=== PATIENT | male | born 1945 | race Caucasian/White ===

== ENCOUNTER → 2019-12-06 09:09 | Outpatient (BNVA) | payer MEDICARE, BC, SELFPAY | PROVIDERS: PCP Family Medicine; Visit Provider Family Medicine | DX: E11.9 Type 2 diabetes mellitus without complications (principal); Z79.4 Long term (current) use of insulin | CPT/HCPCS: 83036; 85025 ==

== ENCOUNTER → 2019-12-09 08:40 | Outpatient (BNVA) | payer MEDICARE, BC, SELFPAY | PROVIDERS: PCP Family Medicine; Visit Provider Family Medicine | DX: E11.9 Type 2 diabetes mellitus without complications (principal); Z79.4 Long term (current) use of insulin; Z12.5 Encounter for screening for malignant neoplasm of prostate | CPT/HCPCS: 80053; 80061; G0103 ==

== ENCOUNTER → 2020-02-04 10:16 | Outpatient (BNVA) | payer MEDICARE, BC, SELFPAY | PROVIDERS: Family Provider Family Medicine; PCP Family Medicine; Visit Provider Internal Medicine Rheumatology | DX: M45.6 Ankylosing spondylitis lumbar region (principal) | CPT/HCPCS: 82565; 84460; 85025; 85651; 86140 ==

== ENCOUNTER → 2020-04-01 11:10 | Outpatient (BNVA) | payer MEDICARE, BC, SELFPAY | PROVIDERS: Family Provider Family Medicine; PCP Family Medicine; Visit Provider Family Medicine | DX: M45.6 Ankylosing spondylitis lumbar region (principal); E11.9 Type 2 diabetes mellitus without complications; Z79.4 Long term (current) use of insulin; E78.5 Hyperlipidemia, unspecified; I10 Essential (primary) hypertension; I25.10 Atherosclerotic heart disease of native coronary artery without angina pectoris | CPT/HCPCS: 80053; 80061; 83036; 85025 ==

== ENCOUNTER → 2020-04-24 12:01 | Outpatient (BNVA) | payer MEDICARE, BC, SELFPAY | PROVIDERS: Family Provider Family Medicine; PCP Family Medicine; Visit Provider Internal Medicine Rheumatology | DX: Z79.899 Other long term (current) drug therapy (principal) | CPT/HCPCS: 80076; 82565; 85025; 85651; 86140 ==

== ENCOUNTER → 2020-05-05 14:07 | Outpatient (BNVA) | payer MEDICARE, BC, SELFPAY | PROVIDERS: Family Provider Family Medicine; PCP Family Medicine; Visit Provider Internal Medicine Rheumatology | DX: M45.6 Ankylosing spondylitis lumbar region (principal); N18.9 Chronic kidney disease, unspecified; Z79.899 Other long term (current) drug therapy; M43.06 Spondylolysis, lumbar region | CPT/HCPCS: 99214 ==

== ENCOUNTER → 2020-07-07 08:20 | Outpatient (BNVA) | payer MEDICARE, BC, SELFPAY | PROVIDERS: Family Provider Family Medicine; PCP Family Medicine; Visit Provider Family Medicine | DX: E78.5 Hyperlipidemia, unspecified (principal); E11.9 Type 2 diabetes mellitus without complications; Z79.4 Long term (current) use of insulin; I10 Essential (primary) hypertension; Z68.34 Body mass index [BMI] 34.0-34.9, adult | CPT/HCPCS: 80053; 80061; 83036 ==

== ENCOUNTER → 2020-08-27 14:41 | Outpatient (BNVA) | payer MEDICARE, BC, SELFPAY | PROVIDERS: Family Provider Family Medicine; PCP Family Medicine; Visit Provider Internal Medicine Rheumatology | DX: Z79.899 Other long term (current) drug therapy (principal) | CPT/HCPCS: 80076; 82565; 85025; 85651; 86140 ==

== ENCOUNTER → 2020-10-05 10:17 | Outpatient (BNVA) | payer MEDICARE, BC, SELFPAY | PROVIDERS: Family Provider Family Medicine; PCP Family Medicine; Visit Provider Family Medicine | DX: I10 Essential (primary) hypertension (principal); E78.5 Hyperlipidemia, unspecified; N40.0 Benign prostatic hyperplasia without lower urinary tract symptoms; Z79.4 Long term (current) use of insulin | CPT/HCPCS: 80053; 80061; 83036; 85025 ==

== ENCOUNTER → 2020-10-19 14:32 | Outpatient (BNVA) | payer MEDICARE, BC, SELFPAY | PROVIDERS: Family Provider Family Medicine; PCP Family Medicine; Visit Provider Internal Medicine Rheumatology | DX: M45.6 Ankylosing spondylitis lumbar region (principal); M54.89 Other dorsalgia; N18.9 Chronic kidney disease, unspecified; M47.816 Spondylosis without myelopathy or radiculopathy, lumbar region; Z79.899 Other long term (current) drug therapy | CPT/HCPCS: 99214 ==

== ENCOUNTER → 2021-01-22 08:31 | Outpatient (BNVA) | payer MEDICARE, BC, SELFPAY | PROVIDERS: Family Provider Family Medicine; PCP Family Medicine; Visit Provider Family Medicine | DX: I10 Essential (primary) hypertension (principal); Z79.899 Other long term (current) drug therapy; E11.9 Type 2 diabetes mellitus without complications; Z79.4 Long term (current) use of insulin; E78.5 Hyperlipidemia, unspecified; Z12.5 Encounter for screening for malignant neoplasm of prostate | CPT/HCPCS: 80053; 80061; 80076; 82565; 83036; 85025; 86140; G0103 ==

== ENCOUNTER → 2021-03-01 12:37 | Outpatient (BNVA) | payer MEDICARE, BC, SELFPAY | PROVIDERS: Family Provider Family Medicine; PCP Family Medicine; Visit Provider Internal Medicine Rheumatology | DX: M45.6 Ankylosing spondylitis lumbar region (principal); Z79.899 Other long term (current) drug therapy; M16.0 Bilateral primary osteoarthritis of hip; E11.22 Type 2 diabetes mellitus with diabetic chronic kidney disease; N18.9 Chronic kidney disease, unspecified; Z79.4 Long term (current) use of insulin | CPT/HCPCS: 99214 ==

== ENCOUNTER → 2021-03-31 08:33 | Outpatient (BNVA) | payer MEDICARE, BC, SELFPAY | PROVIDERS: Family Provider Family Medicine; PCP Family Medicine; Visit Provider Internal Medicine Rheumatology | DX: M45.6 Ankylosing spondylitis lumbar region (principal); M54.89 Other dorsalgia; Z79.899 Other long term (current) drug therapy | CPT/HCPCS: 36415; 80076; 82565; 85025; 86140 ==

== ENCOUNTER → 2021-05-11 11:44 | Outpatient (BNVA) | payer MEDICARE, BC, SELFPAY | PROVIDERS: Family Provider Family Medicine; PCP Family Medicine; Visit Provider Family Medicine | DX: E11.9 Type 2 diabetes mellitus without complications (principal); E78.5 Hyperlipidemia, unspecified; I10 Essential (primary) hypertension; Z79.4 Long term (current) use of insulin | CPT/HCPCS: 80053; 80061; 83036; 85025 ==

== ENCOUNTER → 2021-08-30 10:43 | Outpatient (BNVA) | payer MEDICARE, BC, SELFPAY | PROVIDERS: Family Provider Family Medicine; PCP Family Medicine; Visit Provider Internal Medicine Rheumatology | DX: M45.6 Ankylosing spondylitis lumbar region (principal); Z79.899 Other long term (current) drug therapy; E11.9 Type 2 diabetes mellitus without complications; Z79.4 Long term (current) use of insulin; E78.5 Hyperlipidemia, unspecified | CPT/HCPCS: 80048; 80061; 80076; 82565; 83036; 85025; 86140 ==

== ENCOUNTER → 2021-11-16 11:25 | Outpatient (BNVA) | payer MEDICARE, BC, SELFPAY | PROVIDERS: Family Provider Family Medicine; PCP Family Medicine; Visit Provider Family Medicine | DX: E78.5 Hyperlipidemia, unspecified (principal); E11.9 Type 2 diabetes mellitus without complications; Z79.4 Long term (current) use of insulin; I10 Essential (primary) hypertension; N18.9 Chronic kidney disease, unspecified | CPT/HCPCS: 80053; 80061; 80076; 82565; 83036; 85025; 86140 ==

== ENCOUNTER → 2021-12-14 12:56 | Outpatient (BNVA) | payer MEDICARE, BC, SELFPAY | PROVIDERS: Family Provider Family Medicine; PCP Family Medicine; Visit Provider Internal Medicine Rheumatology | DX: M45.6 Ankylosing spondylitis lumbar region (principal); Z79.899 Other long term (current) drug therapy; Z87.891 Personal history of nicotine dependence; N18.9 Chronic kidney disease, unspecified; M47.816 Spondylosis without myelopathy or radiculopathy, lumbar region; Z71.85 Encounter for immunization safety counseling; Z79.52 Long term (current) use of systemic steroids | CPT/HCPCS: 99214 ==

== ENCOUNTER → 2022-02-18 08:50 | Outpatient (BNVA) | payer MEDICARE, BC, SELFPAY | PROVIDERS: Family Provider Family Medicine; PCP Family Medicine; Visit Provider Family Medicine | DX: E11.9 Type 2 diabetes mellitus without complications (principal); E78.5 Hyperlipidemia, unspecified; I10 Essential (primary) hypertension; Z12.5 Encounter for screening for malignant neoplasm of prostate | CPT/HCPCS: 80053; 80061; 83036; 84443; G0103 ==

== ENCOUNTER → 2022-03-22 09:27 | Outpatient (BNVA) | payer MEDICARE, BC, SELFPAY | PROVIDERS: Family Provider Family Medicine; PCP Family Medicine; Visit Provider Internal Medicine Rheumatology | DX: M45.6 Ankylosing spondylitis lumbar region (principal); Z79.899 Other long term (current) drug therapy | CPT/HCPCS: 80076; 82565; 85025; 86140 ==

== ENCOUNTER → 2022-04-05 12:39 | Outpatient (BNVA) | payer MEDICARE, BC, SELFPAY | PROVIDERS: Family Provider Family Medicine; PCP Family Medicine; Visit Provider Internal Medicine Rheumatology | DX: M45.6 Ankylosing spondylitis lumbar region (principal); Z79.899 Other long term (current) drug therapy; N18.9 Chronic kidney disease, unspecified; K40.90 Unilateral inguinal hernia, without obstruction or gangrene, not specified as recurrent; Z71.89 Other specified counseling | CPT/HCPCS: 99214 ==

== ENCOUNTER → 2022-06-29 12:01 | Outpatient (BNVA) | payer MEDICARE, BC, SELFPAY | PROVIDERS: Family Provider Family Medicine; PCP Family Medicine; Referring Provider Family Medicine; Visit Provider Nurse Practitioner | DX: R56.9 Unspecified convulsions (principal); Z79.899 Other long term (current) drug therapy; Z86.73 Personal history of transient ischemic attack (TIA), and cerebral infarction without residual deficits | CPT/HCPCS: 81241; 85210; 85300; 86140; 99204 ==

== ENCOUNTER → 2022-07-07 09:26 | Outpatient (BNVA) | payer MEDICARE, BC, SELFPAY | PROVIDERS: Family Provider Family Medicine; PCP Family Medicine; Visit Provider Family Medicine | DX: M45.6 Ankylosing spondylitis lumbar region (principal); E11.9 Type 2 diabetes mellitus without complications; E78.5 Hyperlipidemia, unspecified; I10 Essential (primary) hypertension; N18.9 Chronic kidney disease, unspecified; Z79.899 Other long term (current) drug therapy | CPT/HCPCS: 80053; 80061; 83036; 85025 ==

== ENCOUNTER → 2022-07-12 14:40 | Outpatient (BNVA) | payer MEDICARE, BC, SELFPAY | PROVIDERS: Family Provider Family Medicine; PCP Family Medicine; Referring Provider Specialist; Visit Provider Specialist | DX: R56.9 Unspecified convulsions (principal) | CPT/HCPCS: 95816 ==

== ENCOUNTER 2022-07-20 15:32 | Outpatient (CLI) | payer MEDICARE, BC, SELFPAY ==
--- NOTE | 2022-07-20 16:00 | MR_ITS ---
WS: [id number] MRA HEAD TECHNIQUE: Axial 3-D TOF images obtained with axial images and axial, sagittal, and coronal 2-D refor matted images. CLINICAL INFORMATION: I63.9 - Cerebral infarction, unspecified COMPARISON: None. FINDINGS: Both vertebral arteries are patent. Basilar artery is patent. Normal vascularity to the [employer] territory bilaterally. Mild segmental narrowing involving the LEFT greater than RIGHT [employer] territories. No flow -limiting stenosis. Both ICAs are patent at the skull base. Patent anterior communicating artery. Normal vascularity to t he PINKY and MCA territories bilaterally. No evidence of flow-limiting stenosis or aneurysm. Prominent perivascular spaces and/or chronic lacunar infarcts in the basal ganglia. Chronic lacunar i nfarct in the RIGHT thalamus. Susceptibility artifact within the midbrain and rc incompletely evalu ated on this MRA. MR/MR angio head wo con [id number] IMPRESSION: 1. No evidence of high-grade proximal stenosis or aneurysm. 2. Mild intracranial atheromatous disease with mild proximal segmental narrowi ng involving the LEFT greater than RIGHT [employer] territory. Distal vessels remain p atent. 3. Prominent perivascular spaces and/or chronic lacunar infarcts in the basal ganglia. Chronic lacunar infarct in the RIGHT thalamus. No prior intracranial i maging available. 4. No other remarkable findings.
== END 2022-07-20 15:33 | disposition home or self-care (01) ==
LOC: RAD 15:33
PROVIDERS: PCP Family Medicine; Visit Provider Nurse Practitioner
DX: I63.9 Cerebral infarction, unspecified (principal); I70.8 Atherosclerosis of other arteries
CPT/HCPCS: 70544

== ENCOUNTER 2022-07-21 13:58 | Outpatient (CLI) | payer MEDICARE, BC, SELFPAY ==
--- NOTE | 2022-07-21 13:45 | MR_ITS ---
WS: [id number] MRA CAROTID WITHOUT GADOLINIUM ENHANCEMENT TECHNIQUE: Noncontrast Axial 2-D and 3-D TOF images obtained with axial images and axial, sagittal, a nd coronal 2-D reformatted images. CLINICAL INFORMATION: I63.9 - Cerebral infarction, unspecified COMPARISON: None. FINDINGS: RIGHT dominant vertebral artery. Smaller but patent LEFT vertebral artery. RIGHT: RIGHT common carotid artery is patent. Mild atheromatous plaque RIGHT carotid bulb extending i nto the ICA. RIGHT ICA is patent to the skull base. Tortuous cervical ICA at the skull base. LEFT: LEFT common carotid artery is patent. No significant LEFT ICA stenosis. LEFT ICA is patent to t he skull base. MR/MR angio neck w con* [id number] IMPRESSION: 1. RIGHT dominant vertebral artery. Smaller but patent LEFT vertebral artery. 2. Mild irregular atheromatous plaque RIGHT carotid bulb extending into the IC A with less than 50% stenosis. RIGHT ICA is patent to the skull base. 3. No significant LEFT ICA stenosis.
== END 2022-07-21 13:59 | disposition home or self-care (01) ==
LOC: RAD 14:00
PROVIDERS: PCP Family Medicine; Visit Provider Nurse Practitioner
DX: Z79.899 Other long term (current) drug therapy; Z71.89 Other specified counseling; N18.9 Chronic kidney disease, unspecified; M47.896 Other spondylosis, lumbar region; K40.90 Unilateral inguinal hernia, without obstruction or gangrene, not specified as recurrent; Z86.19 Personal history of other infectious and parasitic diseases; I63.9 Cerebral infarction, unspecified
CPT/HCPCS: 70548; 99214

== ENCOUNTER → 2022-10-20 09:06 | Outpatient (BNVA) | payer MEDICARE, BC, SELFPAY | PROVIDERS: PCP Family Medicine; Visit Provider Family Medicine | DX: E78.5 Hyperlipidemia, unspecified (principal); E11.9 Type 2 diabetes mellitus without complications; N18.9 Chronic kidney disease, unspecified; I10 Essential (primary) hypertension; I25.10 Atherosclerotic heart disease of native coronary artery without angina pectoris; Z79.899 Other long term (current) drug therapy; M45.6 Ankylosing spondylitis lumbar region | CPT/HCPCS: 80053; 80061; 82248; 83036; 85025; 86140 ==

== ENCOUNTER → 2022-10-26 13:40 | Outpatient (BNVA) | payer MEDICARE, BC, SELFPAY | PROVIDERS: PCP Family Medicine; Visit Provider Internal Medicine Rheumatology | DX: M45.6 Ankylosing spondylitis lumbar region (principal); Z71.89 Other specified counseling; Z79.899 Other long term (current) drug therapy; M19.041 Primary osteoarthritis, right hand; M19.042 Primary osteoarthritis, left hand; N18.9 Chronic kidney disease, unspecified; Z86.19 Personal history of other infectious and parasitic diseases; K40.90 Unilateral inguinal hernia, without obstruction or gangrene, not specified as recurrent; M47.896 Other spondylosis, lumbar region | CPT/HCPCS: 20600; 99214; J1030 ==

== ENCOUNTER → 2022-11-01 12:18 | Outpatient (BNVA) | payer MEDICARE, BC, SELFPAY | PROVIDERS: PCP Family Medicine; Visit Provider Family Medicine | DX: E21.3 Hyperparathyroidism, unspecified (principal) | CPT/HCPCS: 82040; 82310; 84100 ==

== ENCOUNTER → 2022-12-02 10:47 | Outpatient (BNVA) | payer MEDICARE, BC, OTHER, SELFPAY | PROVIDERS: PCP Family Medicine; Visit Provider Internal Medicine Nephrology | DX: N25.81 Secondary hyperparathyroidism of renal origin (principal) | CPT/HCPCS: 82040; 82310; 84100 ==

== ENCOUNTER → 2023-01-02 10:00 | Outpatient (BNVA) | payer MEDICARE, BC, OTHER, SELFPAY | PROVIDERS: PCP Family Medicine; Visit Provider Internal Medicine Nephrology | DX: N18.9 Chronic kidney disease, unspecified (principal); Z79.899 Other long term (current) drug therapy | CPT/HCPCS: 82040; 82310; 84100 ==

== ENCOUNTER → 2023-01-18 08:31 | Outpatient (BNVA) | payer MEDICARE, BC, OTHER, SELFPAY | PROVIDERS: PCP Family Medicine; Visit Provider Internal Medicine Rheumatology | DX: M45.6 Ankylosing spondylitis lumbar region (principal); Z79.899 Other long term (current) drug therapy; E11.9 Type 2 diabetes mellitus without complications; E78.5 Hyperlipidemia, unspecified; I10 Essential (primary) hypertension | CPT/HCPCS: 80048; 80061; 80076; 82565; 83036; 84443; 85025; 86140 ==

== ENCOUNTER → 2023-01-30 13:39 | Outpatient (BNVA) | payer MEDICARE, BC, SELFPAY | PROVIDERS: PCP Family Medicine; Visit Provider Internal Medicine Rheumatology | DX: M45.6 Ankylosing spondylitis lumbar region (principal); Z79.899 Other long term (current) drug therapy; Z71.89 Other specified counseling; M19.041 Primary osteoarthritis, right hand; M54.89 Other dorsalgia; M19.042 Primary osteoarthritis, left hand | CPT/HCPCS: 99214 ==

== ENCOUNTER → 2023-04-13 09:09 | Outpatient (BNVA) | payer MEDICARE, BC, OTHER, SELFPAY | PROVIDERS: PCP Family Medicine; Visit Provider Internal Medicine Rheumatology | DX: I10 Essential (primary) hypertension (principal); E78.5 Hyperlipidemia, unspecified; E11.9 Type 2 diabetes mellitus without complications; M45.6 Ankylosing spondylitis lumbar region; Z79.899 Other long term (current) drug therapy | CPT/HCPCS: 80053; 80061; 80076; 82565; 83036; 84443; 85025; 86140 ==

== ENCOUNTER → 2023-04-25 12:32 | Outpatient (BNVA) | payer MEDICARE, BC, SELFPAY | PROVIDERS: PCP Family Medicine; Visit Provider Internal Medicine Rheumatology | DX: M45.6 Ankylosing spondylitis lumbar region (principal); Z79.899 Other long term (current) drug therapy; Z71.89 Other specified counseling; M54.89 Other dorsalgia; M19.041 Primary osteoarthritis, right hand; M19.042 Primary osteoarthritis, left hand | CPT/HCPCS: 99214 ==

== ENCOUNTER → 2023-06-08 09:52 | Outpatient (BNVA) | payer MEDICARE, BC, SELFPAY | PROVIDERS: PCP Family Medicine; Visit Provider Internal Medicine Nephrology | DX: N18.9 Chronic kidney disease, unspecified (principal) | CPT/HCPCS: 80069 ==

== ENCOUNTER → 2023-08-09 08:53 | Outpatient (BNVA) | payer MEDICARE, BC, SELFPAY | PROVIDERS: PCP Family Medicine; Visit Provider Internal Medicine Rheumatology | DX: M45.6 Ankylosing spondylitis lumbar region (principal); Z79.899 Other long term (current) drug therapy; E11.9 Type 2 diabetes mellitus without complications; N18.9 Chronic kidney disease, unspecified | CPT/HCPCS: 80053; 82248; 83036; 85025; 86140 ==

== ENCOUNTER → 2023-08-22 12:28 | Outpatient (BNVA) | payer MEDICARE, BC, SELFPAY | PROVIDERS: PCP Family Medicine; Visit Provider Internal Medicine Rheumatology | DX: M45.6 Ankylosing spondylitis lumbar region (principal); Z71.89 Other specified counseling; Z79.899 Other long term (current) drug therapy; M54.89 Other dorsalgia; M19.041 Primary osteoarthritis, right hand; M19.042 Primary osteoarthritis, left hand | CPT/HCPCS: 99214 ==

== ENCOUNTER → 2023-11-15 11:12 | Outpatient (BNVA) | payer MEDICARE, BC, SELFPAY | PROVIDERS: PCP Family Medicine; Visit Provider Internal Medicine Rheumatology | DX: Z79.899 Other long term (current) drug therapy (principal); M45.6 Ankylosing spondylitis lumbar region; E11.9 Type 2 diabetes mellitus without complications; N18.9 Chronic kidney disease, unspecified; I10 Essential (primary) hypertension; Z12.5 Encounter for screening for malignant neoplasm of prostate; E78.5 Hyperlipidemia, unspecified | CPT/HCPCS: 80053; 80061; 80076; 82565; 83036; 85025; 86140; G0103 ==

== ENCOUNTER 2023-11-22 07:57 | Outpatient (CLI) | payer MEDICARE, BC, SELFPAY ==
--- NOTE | 2023-11-22 08:15 | USR_ITS ---
PROCEDURE INFORMATION: Exam: US Abdomen Complete Exam date and time: 11/22/2023 8:06 AM Age: 78 years old Clinical indication: Abnormal lab test; Other: Ther specified abnormal findings of blood; Additional info: R79.89 - other specified abnormal findings of blood chemi. . . TECHNIQUE: Imaging protocol: Real-time ultrasound of the abdomen with image documentation. Complete exam. COMPARISON: No relevant prior studies available. FINDINGS: Liver: Normal size with diffusely increased parenchymal echogenicity. No mass. Portal vein shows appropriately directed flow with normal waveform. Gallbladder: Mild shadowing gallstones possibly mixed with some sludge. There is no gallbladder wall thickening or pericholecystic fluid collection. Biliary ducts: Normal. No stones. No dilation. Visualized common duct measures 6 mm in diameter, normal for age. Pancreas: Visualized pancreas is unremarkable. Right kidney: Normal. No mass. No hydronephrosis. Measures 11 cm in length. Left kidney: Normal. No mass. No hydronephrosis. Measures 11.1 cm in length. Spleen: Normal. No splenomegaly. Measures 10.2 cm in maximal dimension. Aorta: Normal. No aneurysm. Inferior vena cava: Normal. US/US abdomen complete* [id number] IMPRESSION: 1. No acute findings. 2. Cholelithiasis. 3. Hepatic steatosis.
== END 2023-11-22 07:58 | disposition home or self-care (01) ==
LOC: RAD 07:58
PROVIDERS: PCP Family Medicine; Visit Provider Nurse Practitioner Family
DX: R79.89 Other specified abnormal findings of blood chemistry (principal); K80.20 Calculus of gallbladder without cholecystitis without obstruction; K76.0 Fatty (change of) liver, not elsewhere classified
CPT/HCPCS: 76700; 80053; 86705; 86706; 86709; 86803; 87340

== ENCOUNTER → 2023-12-05 12:39 | Outpatient (BNVA) | payer MEDICARE, BC, SELFPAY | PROVIDERS: PCP Family Medicine; Referring Provider Nurse Practitioner Family; Visit Provider Surgery | DX: K80.20 Calculus of gallbladder without cholecystitis without obstruction (principal) | CPT/HCPCS: 99204 ==

== ENCOUNTER 2023-12-18 10:35 | Day surgery (SDC) | payer MEDICARE, BC, SELFPAY ==
[2023-12-18] VITALS (17 sets, daily range): BP systolic 101–178; BP diastolic 44–77; PULSE 60–90; RESP 16–18; TEMP 36.1–38.3; O2SAT 94–100; BMI 30.4
[2023-12-18] MEDS: sodium chloride 0.9% 1,000 ML 30 ML IV (11:20)
--- NOTE | 2023-12-18 11:25 | W.PM.OPSUD ---
Surgery/Procedure H&P Update DATE OF PROCEDURE: December 18, 2023 DATE H&P PERFORMED: 12/05/23 H&P UPDATE INFORMATION: I have reviewed H&P completed within last 30 days, I have examined patient prior to procedure and No changes to prior documentation PLANNED PROCEDURE: Operation Date: 12/18/23 12:40 Proposed Procedures p 13152 lap flakita K80.20,(Not Applicable) - Junior Matta DO
[2023-12-18 11:28] LABS: Glucose Point of Care 93 mg/dL (70-110)
--- NOTE | 2023-12-18 11:31 | P.ANESASSM_ITS ---
Pre-Anesthetic Assessment Height/Weight: Height 1.7 m Weight 87.997 kg Temp Pulse Resp BP Pulse Ox O2 Del Method 98.1 F 60 18 178/77 97 Room Air 12/18/23 11:16 12/18/23 11:16 12/18/23 11:16 12/18/23 11:16 12/18/23 11:16 12/18/23 11:23 Operation Date: 12/18/23 12:40 Proposed Procedures p 77663 lap flakita K80.20,(Not Applicable) - Junior Matta DO Familial anesthetic complications: None Was Beta Edouard taken within 24 hours: Yes Was Clonidine taken within 24 hours: N/A Last intake: Intake Last Liquid Date 12/17/23 Last Liquid Time 21:00 Last Solid Date 12/17/23 Last Solid Time 21:00 Social No alcohol and No tobacco Exam alert, oriented x 3, clear to auscultation bilaterally and regular rate & rhythm Airway Mallampati: Class II Dentition: other (no teeth) CV/HEM Hypertension Chronic Renal Insufficiency Metabolic Diabetes Mellitus and Hyperlipidemia Neuropsych Cerebrovascular Accident, Seizure and Transient Ischemic Attack Anesthetic Plan ASA status: 3 Anesthesia: General Risk of > 500 ml blood loss (7ml/kg in children): No Medications/Allergies Home Medications Medication Instructions Recorded Confirmed Last Taken Type aspirin 325 mg tablet 325 mg PO DAILY #90 tabs 06/07/22 12/15/23 12/13/23 Rx prednisone 10 mg tablet See Rx Instructions .Route 10/26/22 12/15/23 Unknown Rx .COMPLEX #30 tabs insulin syringe-needle U-100 1 mL #300 ea 03/21/23 12/05/23 Unknown Rx 30 gauge x 1/2 (BD Insulin Syringe Ultra-Fine) insulin human U-100 NPH-regulr See Rx Instructions .Route 08/07/23 12/15/23 12/17/23 Rx 70-30 mix 100 unit/mL subcutaneous .COMPLEX #70 mL susp (Humulin 70/30 U-100 Insulin) lidocaine 5 % topical patch 1 patch topical DAILY #30 ea 08/22/23 12/15/23 Unknown Rx losartan 50 mg tablet 50 mg PO DAILY #90 tabs 11/17/23 12/15/23 12/17/23 Rx ondansetron HCl 4 mg tablet 4 mg PO QID PRN nausea and 11/17/23 12/15/23 Unknown Rx vomiting #30 tabs adalimumab 40 mg/0.8 mL 40 mg (0.8 mL) SUBCUT Q14D #2 ea 12/15/23 12/18/23 12/02/23 Rx subcutaneous pen kit (Humira Pen) amlodipine 10 mg tablet 10 mg PO QPM 12/15/23 12/15/23 12/17/23 History atenolol 25 mg tablet 25 mg PO QPM 12/15/23 12/15/23 12/17/23 History atorvastatin 40 mg tablet 40 mg PO QPM 12/15/23 12/15/23 12/17/23 History empagliflozin 25 mg tablet 25 mg PO DAILY 12/15/23 12/15/23 12/15/23 History (Jardiance) insulin glargine 100 unit/mL 40 unit SUBCUT DAILY 12/15/23 12/18/23 12/17/23 His tory subcutaneous solution (Lantus U-100 Insulin) leflunomide 20 mg tablet 20 mg PO DAILY 12/15/23 12/15/23 11/23/23 History niacin 500 mg tablet,extended 500 mg PO DAILY 12/15/23 12/15/23 12/15/23 History release (Slo-Niacin) tamsulosin 0.4 mg capsule 0.4 mg PO DAILY 12/15/23 12/18/23 12/17/23 History acetaminophen 500 mg tablet 500 mg PO Q6H PRN Pain (Scale 12/18/23 12/18/23 11/27/23 History Score 7-10) Allergies Allergy/AdvReac Type Severity Reaction Status Date / Time No Known Allergies Allergy Verified 12/05/23 12:48 Current Medications Generic Name Dose Route Start Last Admin Trade Name Freq PRN Reason Stop Dose Admin Sodium Chloride 1,000 mls @ 30 mls/hr 12/18/23 11:00 12/18/23 11:20 Sodium Chloride 0.9% IV 12/19/23 10:59 30 mls/hr .Q24H NATALIE Administration PFSH Anesthesia Medical History Osteoarthritis of hands, bilateral Carotid stenosis CVA (cerebral vascular accident) Seizure-like activity Inflammatory back pain High risk medication use Immunization counseling Lumbar spondylolysis Dyslipidemia Diabetes CKD (chronic kidney disease) Hypertension CAD (coronary artery disease) Chronic back pain Ankylosing spondylitis lumbar region Family History Other Cancer Denies family history of Lupus (systemic lupus erythematosus) Rheumatoid arthritis Diabetes Chronic kidney disease (CKD) Stroke Social History Smoking and tobacco/nicotine status: never used tobacco/nicotine Alcohol intake: former Substance/Drug Use: never Marital status: Current occupational status: retired Current gender identity: Male Data Anesthesia Cardiac Studies: No Data to Display
[2023-12-18] MEDS: ceFAZolin 2,000 MG in sodium chloride 0.9% (plus) 50 ML 100 MG IV (11:47)
[2023-12-18] MEDS: lidocaine-epi 2% 20 mL INJ INJECTION (12:18)
--- NOTE | 2023-12-18 13:15 | P.OP_ITS ---
Operative Report Date of procedure: December 18, 2023 Surgeon: Junior Matta DO Brief History: Very pleasant 78-year-old gentleman who presents my office with symptomatic cholelithiasis. Laparoscopic cholecystectomy is indicated. The risk and benefits were explained and documented. Procedure: Preoperative diagnosis: Symptomatic cholelithiasis Postoperative diagnosis: Same Procedure performed: Laparoscopic cholecystectomy Surgeon: Dr. Junior Matta DO Estimated blood loss: 700 mL Specimens: Gallbladder to pathology Complications: None apparent Description of procedure: Patient was wheeled into the operative room and placed on the OR table in a supine position. Abdomen was inspected prepped and draped in usual sterile fashion. Time-out was performed and all present were in agreement. A 15 blade scalp was used to make a stab incision in the left upper quadrant and intra- abdominal insufflation was achieved using a Veress needle. After localizing the tissue incisions were made and a 5 millimeter trocar was placed into the umbilicus as well as 2 in the right upper quadrant. A 12 millimeter trocar was placed in the epigastrium. Gallbladder was grasped and elevated. The triangle of Calot was carefully dissected using blunt dissection and electrocautery until the triangle of Calot clearly identified. The cystic duct was clipped proximally and double clipped distally. The duct was then ligated proximally. The cystic artery was clipped proximally and unfortunately the clip where the cystic artery at its base. There was significant blood loss at this time. Ultimately I was able to place a clip across the base to the cystic artery at the right hepatic artery and stop the bleeding. A piece of Surgicel was then placed over the clip. 700 cc of blood loss or control bleeding. The gallbladder was then removed from the liver bed using electrocautery. The bile was very thick and viscous. The gallbladder was removed from the abdomen using an Endo-Catch bag through the epigastric incision. The liver bed was inspected and per the bleeding was controlled with electrocautery and another piece of Surgicel.. The abdomen was irrigated and suctioned. All ports removed. Skin was washed and dried. Incisions were closed with 4-0 Monocryl in a subcuticular interrupted fashion. Skin glue was applied. Patient tolerated the procedure well. I am going to keep the patient as an outpatient in a bed overnight for IV antibiotics and observation
[2023-12-18] MEDS: fentaNYL 50 mcg/mL INJ 2mL IVP ×2 (13:40→13:50)
[2023-12-18] MEDS: HYDROmorphone 1 mg/mL INJ 1 mL 0.5 MG IVP (14:42)
--- NOTE | 2023-12-18 15:51 | PC.NURSE ---
1540- pt resting , family at bedside. abdomen round slightly firm. bowel sounds present but faint. pt waiting for bed on med-surg.
--- NOTE | 2023-12-18 17:10 | ANE.PACU2 ---
Inpatient post-anesthesia follow up: Airway intact: Yes Vital signs: Temperature 98.0 F Pulse Rate 70 Respiratory Rate 22 Blood Pressure 182/68 Pulse Oximetry 94 Oxygen Delivery Me thod Room Air Oxygen Flow Rate 6 Fraction of Inspir ed Oxygen Hydration adequate: Yes Nausea and vomiting: No Pain level: 1 Mental status: Baseline
[2023-12-18] MEDS: pantoprazole 40 mg SDV IVP (18:24)
[2023-12-18] MEDS: D5-NS 0.45% + KCL 20 mEq 20 MEQ/1,000 ML BAG 75 MEQ IV (18:24)
[2023-12-18] MEDS: docusate sodium 100 mg Capsule PO (18:24)
[2023-12-18] MEDS: piperacillin-tazobactam 3.375 GM in sodium chloride 0.9% (plus) 50 ML IV (18:24)
[2023-12-18] MEDS: HYDROcodone-acetaminophen 7.5-325 mg Tablet 1 TAB PO (18:25)
[2023-12-19 01:06] VITALS: TEMP 38.2
[2023-12-19] MEDS: piperacillin-tazobactam 3.375 GM in sodium chloride 0.9% (plus) 50 ML IV ×2 (01:07→09:44)
[2023-12-19 03:11] VITALS: BP 143/55; PULSE 71; RESP 16; TEMP 37; O2SAT 95
[2023-12-19 04:17] LABS: Basophils % 0.3 %; Hematocrit 26.2 % (37-53); Lymphocytes # 1.9 10^3/uL (0.8-4.8); Lymphocytes % 11.8 %; Mean Corpuscular HGB Conc 30.9 g/dL (30-55); Mean Corpuscular Hemoglobin 28.2 pg (27-33); Mean Corpuscular Volume 91.3 fl (82-101); Mean Platelet Volume 10.7 fL (7.4-10.4); Monocytes # 1.3 10^3/uL (0.2-0.9); Monocytes % 8.4 %; Neutrophils # 12.28 10^3/uL (1.8-7.7); Neutrophils % 78.6 %; Nucleated Red Blood Cells % 0 %; Platelet Count 205 10^3/cmm (157-399); Red Blood Count 2.87 10^6/uL (3.85-5.65); Red Cell Distribution Width 14.7 % (12.1-15.1); White Blood Count 15.63 10^3/uL (3.29-11.43)
[2023-12-19 04:40] LABS: Magnesium 1.6 mg/dL (1.7-2.3)
[2023-12-19 04:42] LABS: Alanine Aminotransferase 88 U/L (0-41); Albumin Level 3.1 g/dL (3.5-5.2); Alkaline Phosphatase 210 U/L (40-130); Anion Gap 17.2 (5-19); Aspartate Amino Transferase 93 U/L (0-40); Blood Urea Nitrogen 29 mg/dL (8-23); Calcium 7.4 mg/dL (8.5-10.5); Carbon Dioxide 16 mmol/L (22-29); Chloride 105 mmol/L (98-107); Globulin 2.2 g/dL (1.3-4.6); Glucose 233 mg/dL (65-115); Osmolality Calculated 291 mOsm/kg (285-295); Potassium 4.2 mmol/L (3.5-5.1); Sodium 134 mmol/L (136-145); Total Bilirubin 0.7 mg/dL (0.15-1.2); Total Protein 5.3 g/dL (6.6-8.7)
[2023-12-19] MEDS: D5-NS 0.45% + KCL 20 mEq 20 MEQ/1,000 ML BAG 75 MEQ IV (06:13)
[2023-12-19 07:47] VITALS: BP 182/68; PULSE 70; RESP 22; TEMP 36.7; O2SAT 94
[2023-12-19] MEDS: HYDROcodone-acetaminophen 7.5-325 mg Tablet 1 TAB PO ×2 (09:44→13:12)
[2023-12-19] MEDS: docusate sodium 100 mg Capsule PO (09:45)
[2023-12-19 12:00] VITALS: BP 152/56; PULSE 70; RESP 20; TEMP 36.8; O2SAT 94
--- NOTE | 2023-12-19 12:31 | PM.DCS ---
Discharge Providers Date of Discharge: December 19, 2023 Attending Provider at Discharge: Junior Matta DO Primary Care Provider: Rubi Valencia MD Reason for Visit Reason for Visit: K80.20 Hospital Course Hospital Course This very pleasant 78-year-old gentleman who presented to the hospital for an outpatient cholecystectomy. During the surgery identified very viscous and infected appearing bile. While approximately clipping the cystic artery, the cystic artery came ligated at its base. I was able to control this with hemoclips, but he lost approximately 700 cc of blood in the process. Out of an abundance of caution I kept him overnight for IV antibiotics and monitoring. His hemoglobin fell 2 points and has remained stable. He is vitally stable and tolerating regular diet. Ready for discharge. Physical Exam Narrative: General : Patient is well developed , no acute distress, oriented x3 Head : Normal cephalic, a-traumatic. Ears : Pinnae and external canal are normal. Hearing is normal. Eyes : PERRLA, Sclera and injection are normal. No conjunctival discharge. Nose : Mucous membranes are without erythema. Throat : buccal mucosa is normal, gums are without significant recession or hypertrophy. Lungs : Equal chest rise bilaterally, no use of accessory muscles, trachea is midline. Cor : Rate and rhythm are normal. Abdomen : Soft, ND, appropriately tender, no g/r/m Extremities : No edema, no cyanosis or clubbing, dorsalis pedis pulses are present bilaterally, non-tender to palpation of calves. Upper extremities are normal bilaterally. Back : non-tender to palpation, no CVA tenderness. Neuro : CN II - XII intact, Upper and lower extremities have equal and full strength Discharge Data Studies Completed and Pending Pending at discharge Category Date Time Status CMP [Comprehensive Metabolic Panel] AM LABS Lab 12/20/23 04:00 Ordered CMP [Comprehensive Metabolic Panel] AM LABS Lab 12/21/23 04:00 Ordered Complete Blood Count w/Auto AM LABS Lab 12/20/23 04:00 Uncollected Complete Blood Count w/Auto AM LABS Lab 12/21/23 04:00 Uncollected Magnesium AM LABS Lab 12/20/23 04:00 Ordered Magnesium AM LABS Lab 12/21/23 04:00 Ordered Pathology: Surgical [PTH] Routine Pth 12/18/23 13:19 Received Laboratory Results WBC 15.63 10^3/uL (3.29-11.43) H 12/19/23 03:37 RBC 2.87 10^6/uL (3.85-5.65) L 12/19/23 03:37 Hgb 8.10 g/dL (11.27-16.99) L 12/19/23 03:37 Hct 26.2 % (37-53) L 12/19/23 03:37 MCV 91.3 fl (82-101) 12/19/23 03:37 MCH 28.2 pg (27-33) 12/19/23 03:37 MCHC 30.9 g/dL (30-55) 12/19/23 03:37 RDW 14.7 % (12.1-15.1) 12/19/23 03:37 Plt Count 205 10^3/cmm (157-399) 12/19/23 03:37 MPV 10.7 fL (7.4-10.4) H 12/19/23 03:37 Neut % (Auto) 78.6 % 12/19/23 03:37 Lymph % (Auto) 11.8 % 12/19/23 03:37 [place] % (Auto) 8.4 % 12/19/23 03:37 Eos % (Auto) 0.0 % 12/19/23 03:37 Baso % (Auto) 0.3 % 12/19/23 03:37 Neut # (Auto) 12.28 10^3/uL (1.8-7.7) H 12/19/23 03:37 Lymph # (Auto) 1.9 10^3/uL (0.8-4.8) 12/19/23 03:37 [place] # (Auto) 1.3 10^3/uL (0.2-0.9) H 12/19/23 03:37 Eos # (Auto) 0.0 10^3/uL (0.0-0.8) 12/19/23 03:37 Baso # (Auto) 0.0 10^3/uL (0.0-0.1) 12/19/23 03:37 Nucleated RBC % (auto) 0 % 12/19/23 03:37 Nucleated RBCs # 0.0 /100WBC 12/19/23 03:37 Sodium 134 mmol/L (136-145) L 12/19/23 03:37 Potassium 4.2 mmol/L (3.5-5.1) 12/19/23 03:37 Chloride 105 mmol/L (98-107) 12/19/23 03:37 Carbon Dioxide 16 mmol/L (22-29) L 12/19/23 03:37 Anion Gap 17.2 (5-19) 12/19/23 03:37 BUN 29 mg/dL (8-23) H 12/19/23 03:37 Creatinine 2.6 mg/dL (0.7-1.2) H 12/19/23 03:37 GFR Calculation Not Reportable 12/19/23 03:37 Glucose 233 mg/dL (65-115) H 12/19/23 03:37 POC Glucose 93 mg/dL (70-110) 12/18/23 11:25 Calculated Osmolality 291 mOsm/kg (285-295) 12/19/23 03:37 Calcium 7.4 mg/dL (8.5-10.5) L 12/19/23 03:37 Magnesium 1.6 mg/dL (1.7-2.3) L 12/19/23 03:37 Total Bilirubin 0.7 mg/dL (0.15-1.2) 12/19/23 03:37 AST 93 U/L (0-40) H 12/19/23 03:37 ALT 88 U/L (0-41) H 12/19/23 03:37 Alkaline Phosphatase 210 U/L (40-130) H 12/19/23 03:37 Total Protein 5.3 g/dL (6.6-8.7) L 12/19/23 03:37 Albumin 3.1 g/dL (3.5-5.2) L 12/19/23 03:37 Globulin 2.2 g/dL (1.3-4.6) 12/19/23 03:37 Blood Type O Positive 12/18/23 12:45 Rho(D) Type Rh positive 12/18/23 12:45 Antibody Screen Negative 12/18/23 12:45 Procedures Performed Laparoscopic cholecystectomy Vitals Last Vital Signs Temp 98.0 F 12/19/23 07:47 Pulse 70 12/19/23 07:47 Resp 22 H 12/19/23 07:47 BP 182/68 12/19/23 07:47 Pulse Ox 94 12/19/23 07:47 O2 Del Method Room Air 12/19/23 07:47 O2 Flow Rate 6 12/18/23 13:40 Discharge Plan Discharge Patient Disposition: Home Condition: Stable Prescriptions: New hydrocodone-acetaminophen 7.5-325 mg tablet 1 tab PO Q6H PRN (Reason: pain) Qty: 20 0RF docusate sodium [DOK] 100 mg capsule 100 mg PO BID Qty: 14 0RF amoxicillin-pot clavulanate 875-125 mg tablet 1 tab PO BID Qty: 20 0RF Continued prednisone 10 mg tablet See Rx Instructions .ROUTE .COMPLEX Qty: 30 1RF Dose Instruction: TAKE 1 TABLET DAILY NEEDED FOR JOINT PAIN FOR 4 TO 5 DAYS NEEDED FOR FLARES Rx Instructions: TAKE 1 TABLET DAILY NEEDED FOR JOINT PAIN FOR 4 TO 5 DAYS NEEDED FOR FLARES ondansetron HCl 4 mg tablet 4 mg PO QID PRN (Reason: nausea and vomiting) Qty: 30 0RF (DME) insulin syringe-needle U-100 [BD Insulin Syringe Ultra-Fine] 1 mL 30 gauge x 1/2 syringe See Rx Instructions .ROUTE .MEDSUPPLY Qty: 300 4RF Rx Instructions: THREE TIMES DAILY Humulin 70/30 U-100 Insulin 100 unit/mL (70-30) suspension See Rx Instructions .ROUTE .COMPLEX Qty: 70 3RF Dose Instruction: INJECT 44 UNITS SUBCUTANEOUSLY IN THE MORNING AND 28 UNITS IN THE EVENING Rx Instructions: INJECT 44 UNITS SUBCUTANEOUSLY IN THE MORNING AND 28 UNITS IN THE EVENING Humira Pen 40 mg/0.8 mL pen injector kit 40 mg SUBCUT Q14D Qty: 2 3RF atorvastatin 40 mg tablet 40 mg PO BEDTIME insulin glargine [Lantus U-100 Insulin] 100 unit/mL solution 40 unit SUBCUT DAILY@21 atenolol 25 mg tablet 25 mg PO BEDTIME leflunomide 20 mg tablet 20 mg PO QAM Rx Instructions: FOR ANKYLOSING SPONDYLITIS tamsulosin 0.4 mg capsule 0.4 mg PO QAM amlodipine 10 mg tablet 10 mg PO BEDTIME niacin [Slo-Niacin] 500 mg tablet extended release 500 mg PO BEDTIME Jardiance 25 mg tablet 25 mg PO QAM acetaminophen 500 mg Tablet 500 mg PO Q6H PRN (Reason: Pain (Scale Score 7-10)) multivitamin Tablet 1 tab PO DAILY calcitriol 0.5 mcg capsule 0.5 mcg PO QAM Vitamin D3 25 mcg (1,000 unit) Capsule 25 mcg PO DAILY vitamin A-vitamin C-vit E-min Tablet 1 tab PO DAILY potassium gluconate 595 mg (99 mg) Tablet 595 mg PO DAILY krill oil 500 mg Capsule 500 mg PO DAILY losartan 50 mg tablet 50 mg PO QAM Held aspirin 325 mg tablet 325 mg PO DAILY Qty: 90 3RF Hold Instructions: Resume on 12/21/23. Discharge Orders: Discharge Order (Routine); Ordered 12/19/23 Ordered By: Junior Matta Referrals: Junior Matta DO [Physician] - 01/01/24 9:35 am Discharge Diet: Advance as tolerated Discharge Activity: Resume usual activity Patient Instructions: Post Anesthesia Care Activity Restrictions/Additional Instructions: Do not soak incisions underwater for 2 weeks. Shower daily. Discharge Attestations Time Spent in Discharge Care*: less than 30 min Quality Metrics Clinical Quality Measures [ No reported AMI, CVA or VTE this stay] Coding Level of Care Code Acute Code for Soto Irvin
[2023-12-19 13:26] VITALS: BP 152/56; PULSE 70; RESP 20; TEMP 36.8; O2SAT 94
== END 2023-12-19 13:55 | disposition home or self-care (01) ==
LOC: OR 14:35 → MEDSURG 17:34
PROVIDERS: PCP Family Medicine; Visit Provider Surgery
PROC: 0FT44ZZ Resection of Gallbladder, Percutaneous Endoscopic Approach (ICD-10-PCS; CPT 47562; principal; 2023-12-18 12:30)
DX: K80.10 Calculus of gallbladder with chronic cholecystitis without obstruction (principal); E78.5 Hyperlipidemia, unspecified; Z86.73 Personal history of transient ischemic attack (TIA), and cerebral infarction without residual deficits; Z79.82 Long term (current) use of aspirin; Z79.4 Long term (current) use of insulin; E11.22 Type 2 diabetes mellitus with diabetic chronic kidney disease; I12.9 Hypertensive chronic kidney disease with stage 1 through stage 4 chronic kidney disease, or unspecified chronic kidney disease; N18.9 Chronic kidney disease, unspecified; I25.10 Atherosclerotic heart disease of native coronary artery without angina pectoris
CPT/HCPCS: 47562; 36415; 36416; 80053; 82962; 83735; 85025; 86850; 86900; 88304; C9113; J0360; J0690; J1100; J1170; J2405; J2543; J2704; J2710; J3010; J3490; J7030; P9045

== ENCOUNTER → 2024-01-01 10:39 | Outpatient (BNVA) | payer MEDICARE, BC, SELFPAY | PROVIDERS: PCP Family Medicine; Visit Provider Surgery | DX: R79.89 Other specified abnormal findings of blood chemistry; Z98.890 Other specified postprocedural states; Z90.49 Acquired absence of other specified parts of digestive tract | CPT/HCPCS: 36415; 80076; 85025; 86480; 99024 ==

== ENCOUNTER 2024-01-02 07:42 | Outpatient (CLI) | payer MEDICARE, BC, SELFPAY ==
--- NOTE | 2024-01-02 08:45 | MR_ITS ---
WS: [id number] MRI/MRCP OF THE ABDOMEN WITHOUT GADOLINIUM ENHANCEMENT TECHNIQUE: Coronal T2 Fase BH, Axial T2 Fase BH, Axial T2 FS BH, Zxial 3D Acevedo BH, Axial DWI BH, 2D MRCP Radial BH, 3D MRCP (Resp), and Axial 3D Dyn BH Post sequences. CLINICAL INFORMATION: elevated LFT COMPARISON: None. FINDINGS: Recent postoperative changes cholecystectomy. Expected fluid and hematoma in the gallbladder fossa. S ome this may represent Surgicel from recent surgery. Small amount of suspected postoperative fluid al paresh the undersurface of the RIGHT hepatic lobe. Recommend interval follow-up to resolution. Small RIG HT pleural effusion. 9 mm calculus in the distal common bile duct at the ampulla. Dilatation of the common bile duct nida uring 12 mm at the pancreatic head. Additional smaller calculus in the common hepatic duct measuring 6 mm. Mild intrahepatic biliary ductal dilatation. Normal pancreatic duct. Adrenal glands are normal. No hydronephrosis in either kidney. Small RIGHT renal cyst. Normal visualized pancreas. Normal calib er upper abdominal aorta. Normal adrenal glands Impression: 1. Recent postoperative changes cholecystectomy with fluid/hematoma and Surgicel in the gallbladder fossa. Suggestion of a small amount of fluid or hematoma along the undersurface of the RIGHT hepatic lobe. Recommend interval follow-up with CT to resolution. 2. 9 mm calculus in the distal common bile duct at the ampulla. Additional 6 mm calculus in the comm on hepatic duct. Common bile duct dilatation measures 12 mm. Mild intrahepatic biliary ductal dilatat ion. 3. Small RIGHT pleural effusion. 4. No other acute findings. Notified Jnuior Matta DO at 01/02/2024 9:50 AM.
== END 2024-01-02 07:43 | disposition home or self-care (01) ==
LOC: RAD 07:42
PROVIDERS: PCP Family Medicine; Visit Provider Surgery
DX: R79.89 Other specified abnormal findings of blood chemistry (principal); K91.870 Postprocedural hematoma of a digestive system organ or structure following a digestive system procedure; Y83.8 Other surgical procedures as the cause of abnormal reaction of the patient, or of later complication, without mention of misadventure at the time of the procedure; K80.50 Calculus of bile duct without cholangitis or cholecystitis without obstruction; J90 Pleural effusion, not elsewhere classified; Z90.49 Acquired absence of other specified parts of digestive tract
CPT/HCPCS: 74181

== ENCOUNTER 2024-01-02 10:00 | Emergency (ER) | payer MEDICARE, BC, SELFPAY ==
[2024-01-02 10:33] VITALS: BP 159/70; PULSE 62; RESP 18; TEMP 37.1; O2SAT 98; BMI 30.7
[2024-01-02 10:55] LABS: Basophils # 0.1 10^3/uL (0.0-0.1); Basophils % 0.9 %; Eosinophils # 0.1 10^3/uL (0.0-0.8); Eosinophils % 0.7 %; Hematocrit 26.1 % (37-53); Lymphocytes # 3.1 10^3/uL (0.8-4.8); Mean Corpuscular Hemoglobin 27.6 pg (27-33); Mean Corpuscular Volume 89.1 fl (82-101); Mean Platelet Volume 9.8 fL (7.4-10.4); Monocytes # 0.9 10^3/uL (0.2-0.9); Monocytes % 8.4 %; Neutrophils # 6.64 10^3/uL (1.8-7.7); Nucleated Red Blood Cells % 0 %; Platelet Count 412 10^3/cmm (157-399); Red Blood Count 2.93 10^6/uL (3.85-5.65); Red Cell Distribution Width 15.4 % (12.1-15.1)
[2024-01-02 11:10] LABS: Alanine Aminotransferase 242 U/L (0-41); Albumin Level 3.2 g/dL (3.5-5.2); Anion Gap 18.4 (5-19); Aspartate Amino Transferase 329 U/L (0-40); Blood Urea Nitrogen 24 mg/dL (8-23); Calcium 8.1 mg/dL (8.5-10.5); Carbon Dioxide 19 mmol/L (22-29); Chloride 103 mmol/L (98-107); Globulin 4.3 g/dL (1.3-4.6); Glucose 133 mg/dL (65-115); Lipase 97 U/L (13-60); Osmolality Calculated 288 mOsm/kg (285-295); Potassium 4.4 mmol/L (3.5-5.1); Sodium 136 mmol/L (136-145); Total Bilirubin 1.5 mg/dL (0.15-1.2); Total Protein 7.5 g/dL (6.6-8.7)
[2024-01-02 11:25] LABS: Alkaline Phosphatase 1864 U/L (40-130)
--- NOTE | 2024-01-02 11:50 | ED_ITS ---
HPI - Abdominal Pain 2 General: Chief Complaint: Abdominal Pain Stated Complaint: dr matta sherrill, kary Time Seen by Provider: 01/02/24 10:07 Source: patient Mode of arrival: ambulatory Limitations: no limitations History of Present Illness: 78-year-old male that had a cholecystect antionette done 2 weeks ago he has been having elevated LFTs mildly elevated bilirubin he had MRCP done today that showed a likely common bile duct stone patient was sent here by his surgeon he had slight pain denies any fever denies any vomiting PFSH ED 2 PFSH: Medical History (Updated 01/02/24 @ 14:18 by Rose Yee MD) Osteoarthritis of hands, bilateral Carotid stenosis CVA (cerebral vascular accident) Seizure-like activity Inflammatory back pain High risk medication use Immunization counseling Lumbar spondylolysis Dyslipidemia Diabetes CKD (chronic kidney disease) Hypertension CAD (coronary artery disease) Chronic back pain Ankylosing spondylitis lumbar region Surgical History (Updated 01/01/24 @ 14:00 by Junior Matta DO) Hx laparoscopic cholecystectomy 12/18/23 Dr Matta Family History Other Cancer Denies family history of Lupus (systemic lupus erythematosus) Rheumatoid arthritis Diabetes Chronic kidney disease (CKD) Stroke Social History Smoking and tobacco/nicotine status: never used tobacco/nicotine Alcohol intake: former Substance/Drug Use: never Marital status: Current occupational status: retired Current gender identity: Male Course 2 Vital Signs: Vital signs: Vital Signs Temperature 98.8 F 01/02/24 10:33 Pulse Rate 62 01/02/24 10:33 Respiratory Rate 18 01/02/24 10:33 Blood Pressure 159/70 01/02/24 10:33 Pulse Oximetry 98 01/02/24 10:33 Oxygen Delivery Me thod Room Air 01/02/24 10:33 MDM - Abdominal Pain Medical Decision Making Patient presents here with gallstone in his common bile duct he sent here by his surgeon he had MRCP done this morning I did speak to Dr. Matta patient needs transfer for an ERCP I speaking to [facility] [place] patient is excepted there and will transfer there for higher level care. Medical Records I reviewed the patient's medical records. Lab Data I reviewed the patient's lab results. 01/02/24 10:41 01/02/24 10:41 Labs/Radiology: Laboratory Results WBC 10.90 10^3/uL (3.29-11.43) 01/02/24 10:41 RBC 2.93 10^6/uL (3.85-5.65) L 01/02/24 10:41 Hgb 8.10 g/dL (11.27-16.99) L 01/02/24 10:41 Hct 26.1 % (37-53) L 01/02/24 10:41 MCV 89.1 fl (82-101) 01/02/24 10:41 MCH 27.6 pg (27-33) 01/02/24 10:41 MCHC 31.0 g/dL (30-55) 01/02/24 10:41 RDW 15.4 % (12.1-15.1) H 01/02/24 10:41 Plt Count 412 10^3/cmm (157-399) H 01/02/24 10:41 MPV 9.8 fL (7.4-10.4) 01/02/24 10:41 Neut % (Auto) 61.0 % 01/02/24 10:41 Lymph % (Auto) 28.0 % 01/02/24 10:41 Childress % (Auto) 8.4 % 01/02/24 10:41 Eos % (Auto) 0.7 % 01/02/24 10:41 Baso % (Auto) 0.9 % 01/02/24 10:41 Neut # (Auto) 6.64 10^3/uL (1.8-7.7) 01/02/24 10:41 Lymph # (Auto) 3.1 10^3/uL (0.8-4.8) 01/02/24 10:41 Childress # (Auto) 0.9 10^3/uL (0.2-0.9) 01/02/24 10:41 Eos # (Auto) 0.1 10^3/uL (0.0-0.8) 01/02/24 10:41 Baso # (Auto) 0.1 10^3/uL (0.0-0.1) 01/02/24 10:41 Nucleated RBC % (auto) 0 % 01/02/24 10:41 Nucleated RBCs # 0.0 /100WBC 01/02/24 10:41 Sodium 136 mmol/L (136-145) 01/02/24 10:41 Potassium 4.4 mmol/L (3.5-5.1) 01/02/24 10:41 Chloride 103 mmol/L (98-107) 01/02/24 10:41 Carbon Dioxide 19 mmol/L (22-29) L 01/02/24 10:41 Anion Gap 18.4 (5-19) 01/02/24 10:41 BUN 24 mg/dL (8-23) H 01/02/24 10:41 Creatinine 2.5 mg/dL (0.7-1.2) H 01/02/24 10:41 GFR Calculation Not Reportable 01/02/24 10:41 Glucose 133 mg/dL (65-115) H 01/02/24 10:41 Calculated Osmolality 288 mOsm/kg (285-295) 01/02/24 10:41 Calcium 8.1 mg/dL (8.5-10.5) L 01/02/24 10:41 Total Bilirubin 1.5 mg/dL (0.15-1.2) H 01/02/24 10:41 AST 329 U/L (0-40) H 01/02/24 10:41 ALT 242 U/L (0-41) H 01/02/24 10:41 Alkaline Phosphatase 1864 U/L (40-130) H* 01/02/24 10:41 Total Protein 7.5 g/dL (6.6-8.7) 01/02/24 10:41 Albumin 3.2 g/dL (3.5-5.2) L 01/02/24 10:41 Globulin 4.3 g/dL (1.3-4.6) 01/02/24 10:41 Lipase 97 U/L (13-60) H 01/02/24 10:41 All radiology interpretation(s) finalized by discharge Discharge Plan Discharge Patient Disposition: Xfer Short-Term Hosp Clinical Impression: Choledocholithiasis Condition: Stable Prescriptions: No Action prednisone 10 mg tablet See Rx Instructions .ROUTE .COMPLEX Qty: 30 1RF Dose Instruction: TAKE 1 TABLET DAILY NEEDED FOR JOINT PAIN FOR 4 TO 5 DAYS NEEDED FOR FLARES Rx Instructions: TAKE 1 TABLET DAILY NEEDED FOR JOINT PAIN FOR 4 TO 5 DAYS NEEDED FOR FLARES ondansetron HCl 4 mg tablet 4 mg PO QID PRN (Reason: nausea and vomiting) Qty: 30 0RF (DME) insulin syringe-needle U-100 [BD Insulin Syringe Ultra-Fine] 1 mL 30 gauge x 1/2 syringe See Rx Instructions .ROUTE .MEDSUPPLY Qty: 300 4RF Rx Instructions: THREE TIMES DAILY Humulin 70/30 U-100 Insulin 100 unit/mL (70-30) suspension See Rx Instructions .ROUTE .COMPLEX Qty: 70 3RF Dose Instruction: INJECT 44 UNITS SUBCUTANEOUSLY IN THE MORNING AND 28 UNITS IN THE EVENING Rx Instructions: INJECT 44 UNITS SUBCUTANEOUSLY IN THE MORNING AND 28 UNITS IN THE EVENING @16:00 Humira Pen 40 mg/0.8 mL pen injector kit 40 mg SUBCUT Q14D Qty: 2 3RF fluconazole 150 mg tablet 150 mg PO DAILY Qty: 1 0RF atorvastatin 40 mg tablet 40 mg PO BEDTIME insulin glargine [Lantus U-100 Insulin] 100 unit/mL solution 40 unit SUBCUT DAILY@21 atenolol 25 mg tablet 25 mg PO BEDTIME leflunomide 20 mg tablet 20 mg PO QAM Rx Instructions: FOR ANKYLOSING SPONDYLITIS tamsulosin 0.4 mg capsule 0.4 mg PO QAM amlodipine 10 mg tablet 10 mg PO BEDTIME niacin [Slo-Niacin] 500 mg tablet extended release 500 mg PO BEDTIME Jardiance 25 mg tablet 25 mg PO QAM acetaminophen 500 mg Tablet 500 mg PO Q6H PRN (Reason: Pain (Scale Score 7-10)) multivitamin Tablet 1 tab PO QAM calcitriol 0.5 mcg capsule 0.5 mcg PO QAM cholecalciferol (vitamin D3) [Vitamin D3] 25 mcg (1,000 unit) Capsule 25 mcg PO QAM vitamin A-vitamin C-vit E-min Tablet 1 tab PO QAM potassium gluconate 595 mg (99 mg) Tablet 595 mg PO BEDTIME krill oil 500 mg Capsule 500 mg PO QAM losartan 50 mg tablet 50 mg PO QAM hydrocodone-acetaminophen 7.5-325 mg tablet 1 tab PO Q6H PRN (Reason: Pain) magnesium 250 mg Tablet 250 mg PO QAM aspirin 325 mg tablet 325 mg PO QAM DOK 100 mg capsule 100 mg PO BID PRN (Reason: Constipation) Referrals: Rubi Valencia MD [Primary Care Provider] - Coding Level of Care Code ED Director [employer] for [facility]
[2024-01-02 12:07] VITALS: BP 135/88; PULSE 72; O2SAT 95
[2024-01-02] MEDS: piperacillin-tazobactam 3.375 GM in sodium chloride 0.9% (plus) 50 ML IV (12:21)
[2024-01-02 15:00] LABS: Glucose Point of Care 139 mg/dL (70-110)
[2024-01-02 16:30] VITALS: BP 146/89; PULSE 88; O2SAT 94
[2024-01-02 17:21] LABS: Glucose Point of Care 136 mg/dL (70-110)
[2024-01-02 18:14] VITALS: BP 134/83; PULSE 78; O2SAT 94
== END 2024-01-02 18:16 | disposition short-term general hospital (02) ==
PROVIDERS: Physician Assistant; Emergency Provider Emergency Medicine; PCP Family Medicine
DX: K80.50 Calculus of bile duct without cholangitis or cholecystitis without obstruction (principal); Z79.82 Long term (current) use of aspirin; Z79.4 Long term (current) use of insulin; Z86.73 Personal history of transient ischemic attack (TIA), and cerebral infarction without residual deficits; E78.5 Hyperlipidemia, unspecified; I12.9 Hypertensive chronic kidney disease with stage 1 through stage 4 chronic kidney disease, or unspecified chronic kidney disease; E11.22 Type 2 diabetes mellitus with diabetic chronic kidney disease; N18.9 Chronic kidney disease, unspecified; I25.10 Atherosclerotic heart disease of native coronary artery without angina pectoris
CPT/HCPCS: 36415; 36416; 80053; 82962; 83690; 85025; 96365; 96366; 99284; J2543